=== PATIENT | male | born 1980 | race Caucasian/White ===

== ENCOUNTER 2017-03-14 17:16 | Emergency (ER) | payer OTHER ==
[~2017-03-14 17:16] MED LIST: ATIVAN1 MG PO; DEB AU; LORAZEPAM0.5 MG PO; NEU300 PO; PAROXETINE HCL20 M1 PO; PROMETHAZINE HY25 M1 PO; VIMPAT200 M1 PO
[2017-03-14 17:56] VITALS: BP 136/75
== END 2017-03-14 19:10 | disposition home or self-care (01) ==
LOC: ED 17:16
DX: K04.7 Periapical abscess without sinus (principal); Z79.899 Other long term (current) drug therapy
CPT/HCPCS: 90715; J1885

== ENCOUNTER 2017-09-25 19:41 | Emergency (ER) | payer OTHER ==
[~2017-09-25] VITALS: Ht 172.7 cm; Wt 89.3 kg
[2017-09-25 21:06] VITALS: BP 123/75
== END 2017-09-25 21:06 | disposition home or self-care (01) ==
LOC: ED 19:41
DX: S49.91XA Unspecified injury of right shoulder and upper arm, initial encounter (principal); W17.89XA Other fall from one level to another, initial encounter; Y93.89 Activity, other specified; Y92.89 Other specified places as the place of occurrence of the external cause; Y99.8 Other external cause status

== ENCOUNTER 2019-06-09 07:36 | Emergency (ER) | payer OTHER ==
[~2019-06-09] VITALS: Ht 177.8 cm; Wt 82.6 kg
[2019-06-09 07:46] VITALS: BP 117/71; Ht 177.8 cm; Wt 82.6 kg
== END 2019-06-09 09:18 | disposition home or self-care (01) ==
LOC: ED 07:36
DX: M54.5 Low back pain (principal); F32.9 Major depressive disorder, single episode, unspecified
CPT/HCPCS: J1885